=== PATIENT | male | born 1995 ===

== ENCOUNTER 2017-08-19 14:29 | Emergency (ER) | payer SELFPAY ==
[~2017-08-19] VITALS: Ht 172.7 cm; Wt 77.1 kg
[2017-08-19 14:34] VITALS: Ht 172.7 cm; Wt 77.1 kg
[2017-08-19 16:01] LABS: PLATELET COUNT 207 x10^3mcL (130-400)
[2017-08-19 16:03] LABS: CALCIUM 9.3 mg/dL (8.5-10.1); CARBON DIOXIDE 27.4 mmol/L (21-32); CHLORIDE SERUM 110 mmol/L (98-107); CREATININE SERUM 1.1 mg/dL (0.7-1.3); GFR1 > 60 mL/min; GLUCOSE SERUM 110 mg/dL (74-106); POTASSIUM SERUM 3.4 mmol/L (3.5-5.1); SODIUM SERUM 145 mmol/L (136-145)
[2017-08-19 16:08] LABS: ALBUMIN 4.5 g/dL (3.4-5.0); ALKALINE PHOSPHATASE 118 U/L (46-116); ALT/SGPT 35 U/L (16-63); AST/SGOT 28 U/L (15-37); BILIRUBIN TOTAL 0.4 mg/dL (0.20-1.00); TOTAL PROTEIN, SERUM 8.2 g/dL (6.4-8.2)
[2017-08-19 16:30] LABS: AMPHETAMINE QUAL UR NONE DETECTED (NEG <=1000)
[2017-08-19 16:30] LABS: BASOPHIL % 0 % (0-2)
[2017-08-19 16:45] VITALS: BP 122/65
== END 2017-08-19 16:45 | disposition home or self-care (01) ==
LOC: ED 14:29
PROVIDERS: Emergency Medicine
DX: R41.82 Altered mental status, unspecified (principal)
CPT/HCPCS: G0480; J7030; Q0092